=== PATIENT | male | born 1960 | race American Indian/Alaskan Native ===

== ENCOUNTER 2018-06-08 09:46 | Emergency (ER) | payer SELFPAY ==
--- NOTE | 2018-06-08 10:08 | Emergency Department Report ---
- General Chief Complaint: Wound/Laceration Stated Complaint: EXCESSIVE BLEEDING FROM RIGHT LEG Time Seen by Provider: 06/08/18 10:08 Source: patient Mode of arrival: Ambulatory Limitations: No Limitations - History of Present Illness Initial Comments: Patient said that this morning a piece of glass broke and struck him in the right mid lower leg. He was bleeding and immediately and came to the emergency room. -: Sudden, This morning Location: other (Right leg) Extremity Location: Right: Lower Leg (Mid lower leg) Place: home Patient Tetanus UTD: No Context: accidental Associated Symptoms: pain, other (Bleeding) Treatments Prior to Arrival: bandage - Related Data Previous Rx's Medication Instructions Recorded Last Taken Type Hydrochlorothiazide [HCTZ] 25 mg PO QDAY #30 tablet 06/08/18 Unknown Rx Mupirocin [Bactroban 2%] 1 applic TP TID #1 tube 06/08/18 Unknown Rx Sulfamethoxazole/Trimethoprim 1 each PO BID #20 tablet 06/08/18 Unknown Rx [Bactrim DS TAB] traMADol [Ultram 50 MG tab] 50 mg PO BID #10 tablet 06/08/18 Unknown Rx Allergies Allergy/AdvReac Type Severity Reaction Status Date / Time No Known Allergies Allergy Unverified 06/08/18 10:04 ED Review of Systems ROS: Stated complaint: EXCESSIVE BLEEDING FROM RIGHT LEG Other details as noted in HPI Comment: All other systems reviewed and negative Constitutional: denies: chills, fever Eyes: denies: eye pain, eye discharge ENT: denies: ear pain, throat pain Respiratory: denies: cough, shortness of breath Cardiovascular: denies: chest pain, palpitations Endocrine: no symptoms reported Gastrointestinal: denies: abdominal pain, nausea, vomiting, diarrhea Genitourinary: denies: urgency, dysuria, frequency Skin: lesions, other (Laceration). denies: rash Neurological: denies: headache, weakness, numbness Psychiatric: denies: anxiety, depression Hematological/Lymphatic: denies: easy bleeding, easy bruising ED Past Medical Hx - Past Medical History Previous Medical History?: Yes Hx Hypertension: Yes - Social History Smoking Status: Never Smoker Substance Use Type: None - Medications Home Medications: Home Medications Medication Instructions Recorded Confirmed Last Taken Type Hydrochlorothiazide [HCTZ] 25 mg PO QDAY #30 tablet 06/08/18 Unknown Rx Mupirocin [Bactroban 2%] 1 applic TP TID #1 tube 06/08/18 Unknown Rx Sulfamethoxazole/Trimethoprim 1 each PO BID #20 tablet 06/08/18 Unknown Rx [Bactrim DS TAB] traMADol [Ultram 50 MG tab] 50 mg PO BID #10 tablet 06/08/18 Unknown Rx ED Physical Exam - General Limitations: No Limitations General appearance: alert, in no apparent distress - Head Head exam: Present: atraumatic, normocephalic, normal inspection - Eye Eye exam: Present: normal appearance, PERRL, EOMI Pupils: Present: normal accommodation - ENT ENT exam: Present: normal exam, normal orophraynx, mucous membranes moist - Neck Neck exam: Present: normal inspection, full ROM. Absent: tenderness - Respiratory Respiratory exam: Present: normal lung sounds bilaterally. Absent: respiratory distress, wheezes, rales, rhonchi - Cardiovascular Cardiovascular Exam: Present: regular rate, normal rhythm, normal heart sounds - GI/Abdominal GI/Abdominal exam: Present: soft, normal bowel sounds. Absent: distended, tenderness, guarding, rebound - Extremities Exam Extremities exam: Present: full ROM, normal capillary refill, other (Right lateral mid lower leg 1.5 cm and 1 cm lacerations.) - Back Exam Back exam: Present: normal inspection, full ROM. Absent: tenderness - Neurological Exam Neurological exam: Present: alert, oriented X3, CN II-XII intact - Psychiatric Psychiatric exam: Present: normal affect, normal mood - Skin Skin exam: Present: warm, dry, intact, normal color, other (laceration with bleeding controlled.) ED Course Vital Signs 06/08/18 06/08/18 06/08/18 10:02 10:04 11:37 Temperature 98.6 F Pulse Rate 67 61 55 L Respiratory 20 18 18 Rate Blood Pressure 147/73 Blood Pressure 147/73 149/77 [Left] O2 Sat by Pulse 98 99 99 Oximetry - Reevaluation(s) Reevaluation #1: 06/08/18 14:07 I consulted the general surgeon on-call Dr Bach. He came down to the emergency room and evaluated the patient in the emergency room. He said that this is not appendicitis and he wants me to discharge the patient home. He was patient to follow up in his clinic next week. I will go ahead and discharge patient home according to the recommendation of the general surgeon Dr Bach. Please refer to Dr. Bach consult note for full details of the consult. - Laceration /Wound Repair Right Lower Lateral Leg Wound Location: lower extremity (Right lateral) Wound Length (cm): 2 (1.5 cm and 1 cm) Wound's Depth, Shape: into muscle Wound Explored: clean Irrigated w/ Saline (ccs): 250 Betadine Prep?: Yes Number of Sutures: 3 ([place]) Layer Closure?: No Sterile Dressing Applied?: Yes Progress: Patient tolerated the procedure well. ED Medical Decision Making - Lab Data Result diagrams: 06/08/18 10:25 06/08/18 10:25 - Radiology Data Radiology results: report reviewed, image reviewed - Medical Decision Making Right Leg Laceration. Critical care attestation.: If time is entered above; I have spent that time in minutes in the direct care of this critically ill patient, excluding procedure time. ED Disposition Clinical Impression: Laceration of right lower leg without foreign body Qualifiers: Encounter type: initial encounter Qualified Code(s): S81.811A - Laceration without foreign body, right lower leg, initial encounter Disposition: - TO HOME OR SELFCARE Is pt being admited?: No Does the pt Need Aspirin: No Condition: Stable Instructions: Suture Care (ED), Laceration (ED) Additional Instructions: Please follow up with the general surgeon Dr Bach by calling his out patient clinic on Sunday for an appointment. Office phone number: [phone]. Return to the emergency room if her condition worsens or if you start having any severe abdominal pain. Prescriptions: Hydrochlorothiazide [HCTZ] 25 mg PO QDAY #30 tablet Mupirocin [Bactroban 2%] 1 applic TP TID #1 tube Sulfamethoxazole/Trimethoprim [Bactrim DS TAB] 1 each PO BID #20 tablet traMADol [Ultram 50 MG tab] 50 mg PO BID #10 tablet Referrals: PRIMARY CARE, [Primary Care Provider] - 3-5 Days JAMEE BACH MD [Staff Physician] - 3-5 Days Time of Disposition: 14:10
[2018-06-08] MEDS ORDERED: BOOSTRIX IM ONE (10:10)
[2018-06-08] MEDS ORDERED: NACL 0.9% 1000 ML 1,000 ML IV ONE (10:11)
[2018-06-08] MEDS ORDERED: MORPHINE IV ONE (10:21)
[2018-06-08] MEDS ORDERED: XYLOCAINE 2%/ EPI 1:50,000 (DENTAL) INFILTRATI ONE (10:22)
[2018-06-08] MEDS ORDERED: ZOFRAN IV ONE (10:22)
[2018-06-08] MEDS ORDERED: NACL 0.9% 500 ML IR ONE (10:37)
[2018-06-08 10:41] LABS: Basophils % (Auto) 0.6 % (0.0-1.8); Eosinophils # (Auto) 0.1 K/mm3 (0.0-0.4); Eosinophils % (Auto) 1.6 % (0.0-4.3); Hematocrit 37.3 % (35.5-45.6); Hemoglobin 13.4 gm/dl (11.8-15.2); Lymphocytes % (Auto) 38.2 % (13.4-35.0); Mean Corpuscular HGB Conc 36 % (32-34); Mean Corpuscular Hemoglobin 33 pg (28-32); Mean Corpuscular Volume 93 fl (84-94); Monocytes # (Auto) 0.6 K/mm3 (0.0-0.8); Platelet Count 255 K/mm3 (140-440); Red Blood Count 4.01 M/mm3 (3.65-5.03); Red Cell Distribution Width 12.7 % (13.2-15.2)
[2018-06-08] MEDS: POLYSPORIN TP ONE ×2 (11:00→12:00)
[2018-06-08] MEDS ORDERED: ceFAZolin 2 GM in NACL 0.9% 100 ML IV ONE (11:00)
[2018-06-08] MEDS ORDERED: XYLOCAINE 2%/EPI 1:100,000 INFILTRATI ONE (11:00)
[2018-06-08 11:06] LABS: Alanine Aminotransferase 17 units/L (7-56); Albumin 4.1 g/dL (3.9-5); BUN/Creatinine Ratio 9; Blood Urea Nitrogen 9 mg/dL (9-20); Calcium 9.7 mg/dL (8.4-10.2); Hemolysis Index 7; INR 0.98 (0.87-1.13)
[2018-06-08 11:07] LABS: Partial Thromboplastin Time 32.5 Sec. (24.2-36.6)
[2018-06-08 11:46] VITALS: BP 149/77
--- NOTE | 2018-06-08 12:29 | XRay Report ---
FINAL REPORT EXAM: XR TIBIA FIBULA 2V RT HISTORY: Possible foreign body COMPARISON: None. TECHNIQUE: Four views of the right tibia and fibula FINDINGS: There is normal alignment without acute fracture or dislocation. The joint spaces are preserved. The overlying soft tissues are intact. There is no radiopaque foreign body. IMPRESSION: No acute bony abnormality of the right tibia and fibula. No radiopaque foreign body.
--- NOTE | 2018-06-08 13:44 | Cat Scan Report ---
FINAL REPORT EXAM: CT ANGIO LOWER EXTREMITY RT HISTORY: Right leg laceration at the mid portion of tibia COMPARISON: Radiographs of the right tibia and fibula performed on 06/08/2018 TECHNIQUE: Multiple contiguous axial images were obtained from the lower abdomen to the bilateral lower extremities after administration of IV contrast. Reformatted coronal and sagittal images were available for review. Maximal intensity coronal and sagittal reformatted images were also provided. FINDINGS: The abdominal aorta is normal in appearance without dissection or aneurysm. The celiac axis, superior mesenteric artery, and inferior mesenteric artery are patent and normal in caliber. The bilateral renal arteries are patent and normal in caliber. The bilateral iliac arteries are patent and normal in caliber. The right external iliac artery is patent and normal in caliber. The right common femoral artery, femoral artery, profunda branch, popliteal artery and tibioperoneal trunk are patent and normal in caliber. There is normal triple-vessel flow into the ankle. There is no evidence of active extravasation of contrast to suggest vascular injury. The left external iliac artery is patent and normal in caliber. The left common femoral artery, femoral artery, profunda branch, popliteal artery and peroneal trunk are patent and normal in caliber. There is normal triple-vessel flow into the ankle. Musculature of the bilateral lower extremities is normal in appearance and is symmetric. There is no focal fluid collection R mass. There are skin tatyana or sutures over the lateral aspect of the right lower leg. There is no definite foreign body. The visualized portions of the liver, pancreas, spleen, adrenal glands, and kidneys are normal in appearance. There is dilatation of the tip of the appendix, measuring up to 1 centimeter with an associated appendicolith. There is indistinctness of the border of the tip of the appendix and there is some free fluid measuring approximately 7.6 x 2.8 by 4.6 centimeters in the right lower quadrant. The remainder of the bowel is normal in appearance without obstruction. The bones are normal. IMPRESSION: 1. Normal CT angiogram of the abdomen and bilateral lower extremities. No evidence of active extravasation to suggest arterial injury. 2. Concern for acute appendicitis with focal perforation with a large amount of free fluid in the right lower quadrant. No loculated or rim enhancing collection to suggest abscess. 3. Subcutaneous tatyana along the soft tissues of the right lateral tibia. No radiopaque foreign body. Findings were discussed with Dr. Tomlinson at 1:30 p.m., [facility] time, on 06/08/2018.
--- NOTE | 2018-06-08 19:51 | Consultation ---
HISTORY OF PRESENT ILLNESS: I was called by our ER doctor to see this man. He is a 58-year-old who apparently had a trauma to his right leg area. He had a wound from a glass that had him come to the ER for further evaluation. The wound was stapled in the ER and apparently he was me because of ? pain in the right lower quadrant. He had no nausea, no vomiting. His appetite is very good as he told me. The patient is not allergic to any medicines. There is ? diabetes. PHYSICAL EXAMINATION: GENERAL: At this point showed a thin, slim black male who is in no distress. He was eating when I saw him. HEAD AND NECK: Negative. CHEST: Clear. HEART: Sound noted. ABDOMEN: Flat, soft, benign, no evidence of any tenderness. EXTREMITIES: Showed no edema. He had a bandage over his right lower extremity in the mid leg area. I believe this need to be addressed by him, see me in the office in about 2 weeks or 10 days to remove the tatyana. I indicated to the patient that if he has any pain to the right lower quadrant to give me a call. JOB# [id number] ANNE MARIE/REGULO
== END 2018-06-08 15:35 | disposition home or self-care (01) ==
LOC: ED 09:46
DX: S81.811A Laceration without foreign body, right lower leg, initial encounter (principal); I10 Essential (primary) hypertension; W25.XXXA Contact with sharp glass, initial encounter; Y93.89 Activity, other specified; Y92.89 Other specified places as the place of occurrence of the external cause; Y99.8 Other external cause status
CPT/HCPCS: 12001; 36415; 73590; 73706; 80053; 85025; 85610; 85730; 90471; 90715; 96365; 96375; 99284; J0690; J2270; J2405; J7030; Q9967